=== PATIENT | male | born 1970 | race Two or more races ===

== ENCOUNTER 2017-05-18 09:21 | Outpatient (CLI) | payer OTHER ==
[~2017-05-18 09:21] MED LIST: ASA-EC81 MG PO; CEFADROXIL1 GM PO; CEPHALEXIN500 M1 PO; GABAPENTIN600 MG PO; HIBICLENS118 ML TP; LIPITOR20 MG PO; LOPRESSOR25 MG PO
== END 2017-05-18 09:25 | disposition home or self-care (01) ==
LOC: LAB 09:21
DX: K42.9 Umbilical hernia without obstruction or gangrene (principal); Z01.812 Encounter for preprocedural laboratory examination

== ENCOUNTER 2017-05-18 09:32 | Outpatient (CLI) | payer OTHER | END 2017-05-18 09:40 | disposition home or self-care (01) | LOC: EKG 09:32 | DX: K42.9 Umbilical hernia without obstruction or gangrene (principal); Z01.810 Encounter for preprocedural cardiovascular examination ==

== ENCOUNTER 2017-05-18 09:34 | Outpatient (CLI) | payer OTHER | END 2017-05-18 09:40 | disposition home or self-care (01) | LOC: RAD 09:34 | DX: K42.9 Umbilical hernia without obstruction or gangrene (principal); Z01.810 Encounter for preprocedural cardiovascular examination ==

== ENCOUNTER 2020-10-23 08:10 | Outpatient (CLI) | payer OTHER | END 2020-10-23 08:12 | disposition home or self-care (01) | LOC: NUCLEAR 08:10 | PROVIDERS: ATTEND General Practice | DX: I87.2 Venous insufficiency (chronic) (peripheral) (principal) ==

== ENCOUNTER 2022-06-23 11:55 | Outpatient (CLI) | payer OTHER | END 2022-06-23 11:59 | disposition home or self-care (01) | LOC: SONOGRAMA 11:55 | DX: N18.32 Chronic kidney disease, stage 3b (principal) ==

== ENCOUNTER 2022-06-30 09:47 | Outpatient (CLI) | payer OTHER | END 2022-06-30 09:48 | disposition home or self-care (01) | LOC: NUCLEAR 09:47 | DX: N18.9 Chronic kidney disease, unspecified (principal); N17.9 Acute kidney failure, unspecified | CPT/HCPCS: 78709; A9539; J1940 ==

== ENCOUNTER 2022-07-16 12:25 | Outpatient (CLI) | payer OTHER | END 2022-07-16 12:30 | disposition home or self-care (01) | LOC: RAD 12:25 | PROVIDERS: ATTEND General Practice | DX: M17.11 Unilateral primary osteoarthritis, right knee (principal); M17.12 Unilateral primary osteoarthritis, left knee ==

== ENCOUNTER 2022-12-23 13:51 | Outpatient (CLI) | payer OTHER | END 2022-12-23 13:56 | disposition home or self-care (01) | LOC: MRI 13:51 | PROVIDERS: ATTEND Physical Medicine & Rehabilitation | DX: M25.561 Pain in right knee (principal) | CPT/HCPCS: 73721 ==

== ENCOUNTER 2024-05-30 08:26 | Outpatient (CLI) | payer OTHER | END 2024-05-30 08:28 | disposition home or self-care (01) | LOC: RAD 08:26 | PROVIDERS: ATTEND Physical Medicine & Rehabilitation | DX: M17.12 Unilateral primary osteoarthritis, left knee (principal) ==